=== PATIENT | male | born 1980 | race Caucasian/White ===

== ENCOUNTER 2021-05-05 11:37 | Emergency (ER) | payer OTHER ==
[~2021-05-05] VITALS: Ht 195.6 cm; Wt 127.5 kg
--- NOTE | 2021-05-05 11:50 | NUR ---
BIB [facility] C/O BACK PAIN S/P FALLING BACKWARDS AFTER [employer] HE WAS ABOUT TO GET IN TOOK OFF. AAOX4, BREATHING EVEN AND UNLABORED, NOT IN RESP DISTRESS. NEURO INTACT. ON MONITOR. POX 100% ON RA. MD AT BEDSIDE
[2021-05-05] MEDS ORDERED: MORPHINE SULFATE INJ 2 MG/ML DISP.SYRIN IM ONE (12:00)
[2021-05-05] MEDS ORDERED: MORPHINE SULFATE INJ 2 MG/ML DISP.SYRIN ONE (12:00)
[2021-05-05] MEDS ORDERED: MORPHINE SULFATE INJ 4 MG/ML DISP.SYRIN ONE (12:01)
--- NOTE | 2021-05-05 12:12 | NUR ---
PT WHEELED TO CT VIA [facility]
--- NOTE | 2021-05-05 13:06 | NUR ---
PY LAYING FLAT IN BED. NEEDS MET.
[2021-05-05] MEDS ORDERED: IBUP-1955 PO (13:17)
[2021-05-05] MEDS ORDERED: HYDR-4275 PO (13:17)
[2021-05-05] MEDS ORDERED: KETOROLAC TROMETHAMINE INJ 30 MG/ML VIAL ONE (13:22)
[2021-05-05] MEDS ORDERED: KETOROLAC TROMETHAMINE INJ 60 MG/2 ML VIAL IM ONE (13:30)
[2021-05-05] MEDS ORDERED: HYDROMORPHONE 1 MG/1 ML DISP.SYRIN IM ONE (14:00)
[2021-05-05] MEDS ORDERED: HYDROMORPHONE 1 MG/1 ML DISP.SYRIN ONE (14:03)
--- NOTE | 2021-05-05 14:09 | NUR ---
PT AWAITING FOR TRANSPORTATION
[2021-05-05 14:48] VITALS: BP 124/78
--- NOTE | 2021-05-05 14:49 | NUR ---
Patient discharged to home in stable condition. Written and verbal after care instructions given. Patient verbalizes understanding of instruction.
== END 2021-05-05 14:49 | disposition home or self-care (01) ==
LOC: ER 11:43
DX: M54.50 Low back pain, unspecified (principal); W19.XXXA Unspecified fall, initial encounter; Y93.53 Activity, golf; Y92.39 Other specified sports and athletic area as the place of occurrence of the external cause; Y99.8 Other external cause status
CPT/HCPCS: 72128; 72131; 96372 ×2; 99284; J1170; J1885; J2270 ×2